=== PATIENT | male | born 1970 | race Caucasian/White ===

== ENCOUNTER 2016-07-26 09:47 | Emergency (ER) | payer OTHER ==
[2016-07-26 10:43] VITALS: TEMP 98.4
[2016-07-26 10:44] VITALS: BMI 22.3
[2016-07-26 12:01] LABS: AMORPHOUS OCC; LEUKOCYTES/URINE 1+ (NEGATIVE); NITRITE/URINE NEG (NEGATIVE); RBC/URINE TNTC (0-2); URINE OCCULT BLOOD 3+ (NEG/TRACE); WBC/URINE 20-30 (0-2)
--- NOTE | 2016-07-26 12:20 | EDPRACDOC ---
- General Information Chief Complaint: Male Urogenital Problems Stated Complaint: KIDNEY PAIN Time Seen by Provider: 07/26/16 12:12 Information Source: Patient Home Medications: Home Medications Ondansetron HCl [Zofran] 4 mg PO Q8H PRN #15 tab 07/26/16 Oxycodone Immediate Release [Oxycodone Immediate Release (OxyIR)] 5 mg PO Q6H PRN #15 tab 07/26/16 Allergies/Adverse Reactions: Allergies Allergy/AdvReac Type Severity Reaction Status Date / Time No Known Allergies Allergy Verified 07/26/16 10:42 - History of Present Illness Onset: Monday HPI: Pt c/o L flank pain radiating to LLQ, testicle pain, nausea, diaphoresis x 2-3 days. Pt states while in waiting room he urinated and heard something hit toilet. Pt states pain relieved. Pt states went to urgent care and was given cipro, flomax, flexeril Pain Began: Reports: Spontaneous Pain Location: Reports: Abdomen, Flank, Groin Pain Severity: None Pain Quality: Reports: Aching, Sharp Numbness: Denies: Toes, Foot, Leg, Thigh, Saddle, Other Weakness: Denies: Toes, Foot, Leg, Thigh, Other Oral Intake: Normal Urinary Output: Normal Modifying Factors: improves with: Nothing Associated Signs and Symptoms: Reports: Hematuria, Abdominal Pain, Nausea ED Past Medical History - History Reviewed Yes Nurses notes reviewed and agree except as marked - Patient Medical History Psychological History: Denies: Depression - Social Medical History Smoking Status: Former smoker ETOH: None Substance Abuse: None EDM Review of Systems - Review of Systems Constitutional: No Symptoms Reported. negative: Fever, Chills, Weakness, Fatigue, Loss of Appetite Respiratory: No Symptoms Reported. negative: Cough, Brassy Cough, Barky Cough, Shortness of Breath, Wheezing, Hemoptysis Cardiovascular: No Symptoms Reported. negative: Chest Pain, Palpitations, Syncope, Edema, Orthopnea, PND, Skin Mottling, Cyanosis Gastrointestinal: Nausea, Pain Genitourinary: Hematuria, Flank Pain Neurological: No Symptoms Reported. negative: Headache, Dizziness, Seizure, Numbness, Weakness, Speech Difficulty, Gait Difficulty Musculoskeletal: No Symptoms Reported. negative: Neck, Chestwall, Ribs, Back, Shoulder, Arm, Elbow, Forearm, Wrist, Hand, Pelvis, Hip, Femur, Knee, Leg, Ankle , Foot Integumentary: No Symptoms Reported. negative: Itching, Rash, Bruising, Wound Allergic/Immunologic: No Symptoms Reported. negative: Hives, Itching Hematologic: No Symptoms Reported. negative: Lymphadenopathy, Easy Bruising, Easy Bleeding Psychiatric: No Symptoms Reported. negative: Anxiety, Depression, Hallucinations, Insomnia, Suicidal - Physical Exam Constitutional: Alert Oriented to: Time, Person, Place Last recorded Vital Signs: Last Vital Signs Temp 98.4 F 07/26/16 10:42 Pulse 98 07/26/16 10:42 Resp 16 07/26/16 10:42 BP 128/84 07/26/16 10:42 Pulse Ox 97 07/26/16 10:42 Oxygen Pulse Oxygen Saturation 97 O2 Device Room Air Oxygen Flow Rate Fraction of Inspired Oxygen ( FIO2) - HEENT Head: Normal ( normocephalic) Eye Exam: Normal (PERRL, EOMI, Sclera white) - Respiratory/Cardiovascular Respiratory: Normal - CTA (BBS clear to auscultation without adventitious sounds ) Cardiovascular: Normal (RRR without murmur, gallop or rub) - GI Auscultation: Normal (NABS) Palpation: Normal (Soft,No rebound or guarding, non distended) Tenderness: Non tender - Musculoskeletal Back: Normal (Non-Tender) Extremities: Normal (Normal tone, Pulses 2+ No cyanosis or edema, FROM) - Integumentary Skin: Normal, Warm, Dry Lymphatics: Normal (no adenopathy) - Neurologic Memory Impaired: Normal Motor Function: Normal (Normal tone, Pulses 2+ No cyanosis or edema, FROM) Mood Description: Normal Perception: Normal - Differential Diagnosis Musculoskeletal pain, Pyelonephritis, Strain, Urolithiasis, Urinary tract infection - Results Urine Color Yellow 07/26/16 11:29 Urine Clarity Cldy 07/26/16 11:29 Urine pH 6.0 (5.0-8.0) 07/26/16 11:29 Ur Specific [place] 1.005 (1.003-1.035) 07/26/16 11:29 Urine Protein 2+ (NEG/TRACE) H 07/26/16 11:29 Urine Glucose (UA) Neg (NEGATIVE) 07/26/16 11:29 Urine Ketones Neg (NEGATIVE) 07/26/16 11:29 Urine Occult Blood 3+ (NEG/TRACE) H 07/26/16 11:29 Urine Nitrite Neg (NEGATIVE) 07/26/16 11:29 Urine Bilirubin Neg (NEGATIVE) 07/26/16 11:29 Urine Urobilinogen <2.0 MG/DL (0-1) 07/26/16 11:29 Ur Leukocyte Esterase 1+ (NEGATIVE) H 07/26/16 11:29 Urine RBC Tntc (0-2) H 07/26/16 11:29 Urine WBC 20-30 (0-2) H 07/26/16 11:29 Amorphous Sediment Occ 07/26/16 11:29 Urine Bacteria 2+ (NEG/FEW) H 07/26/16 11:29 Hyaline Casts 0-2 (0-2) 07/26/16 11:29 Urine Mucus Occ (NEG/OCC) 07/26/16 11:29 Lab Results 07/26/16 11:29 Urine Color Yellow Urine Clarity Cldy Urine pH 6.0 Ur Specific [place] 1.005 Urine Protein 2+ H Urine Glucose (UA) Neg Urine Ketones Neg Urine Occult Blood 3+ H Urine Nitrite Neg Urine Bilirubin Neg Urine Urobilinogen <2.0 Ur Leukocyte Esterase 1+ H Urine RBC Tntc H Urine WBC 20-30 H Amorphous Sediment Occ Urine Bacteria 2+ H Hyaline Casts 0-2 Urine Mucus Occ Decision Time to Discharge: 12:21 - Departure Disposition: Home Condition: Good Final Diagnosis: Renal colic on left side UTI (urinary tract infection) Qualifiers: Urinary tract infection type: acute cystitis Hematuria presence: with hematuria Qualified Code(s): N30.01 - Acute cystitis with hematuria Instructions: Non-pharmacological Pain Management Therapies for Adults (GEN), Urinary Tract Infection in Men (ED), Kidney Stones (ED) Education/Counseling Given To: Patient Education/Counseling Given Regarding: Diagnosis, Treatment, Follow Up Referrals: Anson Mccurdy MD [Primary Care Provider] - One Week Bernard Orta MD [Staff Physician] - One Week Prescriptions: Ondansetron HCl [Zofran] 4 mg PO Q8H PRN #15 tab PRN Reason: Nausea/Vomiting Oxycodone Immediate Release [Oxycodone Immediate Release (OxyIR)] 5 mg PO Q6H PRN #15 tab PRN Reason: Pain Additional Instructions: Continue Cipro and Flomax as previously directed. Return for worse or different symptoms.
[2016-07-26 12:37] VITALS: BP 120/65; PULSE 79
== END 2016-07-26 12:29 | disposition home or self-care (01) ==
LOC: ED 09:47 → EDMC 12:29
DX: N23 Unspecified renal colic (principal); N30.01 Acute cystitis with hematuria
CPT/HCPCS: 81001; 87086; 99283